=== PATIENT | female | born 1950 | race Caucasian/White ===

== ENCOUNTER → 2016-12-31 | Outpatient (CLI) | payer MEDICARE, OTHER ==
[~2016-12-31] MED LIST: BACTRIM DS TABL1 TAB PO; COLACE PO; LORTAB 10-5001 EACH PO; NEXIUM PO; PRILOSEC PO; RANITIDINE HCL150 M1 PO; SYNTHROID PO; ULTRAM PO; VITAMIN D1000 UNIT PO
--- NOTE | ~2016-12-31 | MR18 ---
[facility] A Service of [facility] RADIOLOGY TEXT RESULTS PATIENT: JHONY CLAIRE LOCATION: [facility] : 46 UNIT #: [id number] AGE: [address]: Nikita Madnujano MD SEX: F ORDER DR: [id number] [place] [id number] O MR#: [id number] Acc #: [id number] NAME: JHONY CLAIRE. : 1950 SEX: F STUDY DATE/TIME: 12/31/2016 9:39 UNIT: [facility] ROOM: STUDY DESCRIPTION: MR Brain Wo Contrast Attending Physician: Nikita Mandujano M.D. Referring Physician: Nikita Mandujano M.D. Ordering Physician: Nikita Mandujano M.D. Primary Care Physician: Nikita Mandujano M.D. MRI CENTER REPORT This report is preliminary unless electronic signature is present. EXAM MRI of the brain without. HISTORY Acromegaly, sudden onset of memory issues. Some balance disturbance. Per patient study is not being performed to evaluate pituitary tumor and therefore the study is performed as a routine noncontrast brain MRI per patient request. The patient had surgery on the pituitary gland in 1984. Current symptoms are for the past 2-3 months with a family history of dementia. COMMENT MRI of the brain was performed without contrast using routine 1.5T wide-bore imaging technique. There is a prior study from 2005. The sella is enlarged and empty and this is consistent with remote surgery history. Again, this is not a study of the sella. Appearance is not appreciably changed from prior. No Chiari-I malformation. No MRI evidence for recent intracranial hemorrhage. No recent ischemia is suspected on the diffusion sequence. No extraaxial fluid collection. Mild generalized prominence of perivascular spaces. Volume loss is essentially age-appropriate and there is no particular pattern. The major intracranial flow voids are maintained. Minor fluid or inflammatory change left side mastoid tip. Mucosal thickening in the ethmoid air cells. Tiny lacunes and/or prominent perivascular spaces in the basal ganglia and thalami. [id number] white matter signal abnormality is nonspecific but likely due to small vessel disease and most confluent in the periventricular white matter. There is some focal white matter disease in the anterior temporal white matter, mildly progressed from the 2006 exam. In general, the small vessel disease has progressed from that study. White matter signal abnormality in the anterior temporal region is associated with CADASIL. No subtle. Please correlate clinically. It is otherwise nonspecific and could simply be due to progression of small STS. [facility] A Service of [facility] RADIOLOGY TEXT RESULTS PATIENT: JHONY CLAIRE LOCATION: [facility] : 46 UNIT #: [id number] AGE: [address]: Nikita Mandujano MD SEX: F ORDER DR: vessel disease. There is no intracranial mass effect. IMPRESSION 1. Stable postoperative changes to the sella. This is not a study of the sella turcica but rather a routine noncontrast brain MRI to evaluate the patient's complaint of memory disturbance. 2. Age-appropriate volume loss. No particular atrophy pattern is seen. No extraaxial fluid collection, hydrocephalus, or intracranial mass effect. 3. White matter disease is nonspecific but probably due to small vessel disease. This has progressed from 2006. There are areas of signal abnormality in the white matter anterior temporal lobes bilaterally. This could simply be due to small vessel disease, but please correlate for any clinical concern for CADASIL given focal involvement of this region. Dictated by... Xiomy Roe M.D. THIS IS AN ELECTRONICALLY VERIFIED REPORT Xiomy Roe M.D. at 01/01/2017 6:13 PM TONY/ce TD: 01/01/2017 16:57 JOB #: [id number] MRI CENTER REPORT Page 1 of 1
== END | disposition home or self-care (01) ==
LOC: SMRI 08:39
DX: E22.0 Acromegaly and pituitary gigantism (principal); R41.3 Other amnesia; R90.82 White matter disease, unspecified; Z86.018 Personal history of other benign neoplasm; Z98.890 Other specified postprocedural states
CPT/HCPCS: 70551